=== PATIENT | male | born 2000 | race Caucasian/White ===

== ENCOUNTER 2021-06-01 12:30 | Outpatient (CLI) | payer BC ==
[~2021-06-01 12:30] MED LIST: Magnevist 469MG/ML 20 ML VIAL ONE
== END 2021-06-01 12:31 | disposition home or self-care (01) ==
LOC: EEG 12:30
PROVIDERS: ATTEND Nurse Practitioner Acute Care
DX: G40.001 Localization-related (focal) (partial) idiopathic epilepsy and epileptic syndromes with seizures of localized onset, not intractable, with status epilepticus (principal)
CPT/HCPCS: 70553; 95816; A9579